=== PATIENT | male | born 1955 | race Caucasian/White ===

== ENCOUNTER → 2016-05-03 | Outpatient (CLI) | payer BC | LOC: MW.CHFP 14:16 | PROVIDERS: ATTEND Nurse Practitioner Family | DX: Z00.00 Encounter for general adult medical examination without abnormal findings (principal); R53.83 Other fatigue; I10 Essential (primary) hypertension; L82.1 Other seborrheic keratosis | CPT/HCPCS: 36415; 80053; 84443; 85027; G0103 ==

== ENCOUNTER → 2016-05-13 | Outpatient (CLI) | payer BC ==
--- NOTE | 2016-05-15 10:45 | ECHO ---
The echocardiogram report can be seen in this patient's EMR in the Reports section. CALE
== END | disposition home or self-care (01) ==
LOC: MW.US 12:40
PROVIDERS: ATTEND Nurse Practitioner Family
DX: I10 Essential (primary) hypertension (principal); R53.83 Other fatigue
CPT/HCPCS: 93306

== ENCOUNTER → 2016-05-20 | Outpatient (CLI) | payer BC | END | disposition home or self-care (01) | LOC: MW.CHIM 13:22 | PROVIDERS: ATTEND Internal Medicine | DX: I10 Essential (primary) hypertension (principal); R07.89 Other chest pain | CPT/HCPCS: 93005 ==

== ENCOUNTER → 2016-05-30 | Outpatient (CLI) | payer BC ==
--- NOTE | 2016-05-30 08:37 | PCM.PRNOTE ---
- Free Text/Narrative Note: Lexiscan Indication cardiomyopathy Patient was supervised today during infusion portion of the stress test. The patient received Regadenoson 0.4 mg IV and nuclear agent using standard protocol. Sestamibi Tm99 25 Mci was gievn afterwards Baseline blood pressure is98/68 with a heart rate 85 EKG atrial fibrillation without ST abnormalities Vital signs at injection: Peak blood pressure 99/63 with a heart rate of 81 Vital signs at 4 minutes post injection: Peak blood pressure 97/65with a heart rate of 77 EKG atrial fibrillation without further ST changes Patient complains of fluttering spontaneously resolved Adverse effects from Hue scan none Test done due to end of protocol Impression 1. electrocardiographically nondiagnostic for ischemia due to chemical protocol 2. nuclear imaging pending
--- NOTE | 2016-05-30 14:58 | NM ---
EXAMINATION: Nuclear medicine myocardial perfusion study HISTORY: Hypertension. PROCEDURE: Following intravenous administration of 0.4 mg of Lexiscan and 26.8 mCi of technetium 99m sestamib i, stress SPECT images including gating imaging was performed. FINDINGS: Stress myocardial SPECT images demonstrates mildly heterogeneous uptake within the left ventricular myocardium. There is a small area of mildly decreased perfusion along the anterior wall. This is mos t likely breast attenuation artifact. Review of gated images demonstrates normal wall motion, contractility and wall thickening. The left ventricular ejection fraction is 62 %. The left ventricular chamber size is normal. IMPRESSION: 1. No definite evidence of myocardial ischemia with probable small area of breast attenuation artifa ct anteriorly. 2. Normal ventricular chamber size and function with ejection fraction of 62 %.
== END | disposition home or self-care (01) ==
LOC: MW.NM 08:22
PROVIDERS: ATTEND Internal Medicine
DX: I10 Essential (primary) hypertension (principal)
CPT/HCPCS: 93017; J2785; 78451; 78451-26; A9500

== ENCOUNTER → 2016-06-07 | Outpatient (CLI) | payer BC ==
--- NOTE | 2016-06-11 15:29 | NM ---
EXAM DATE: 06/07/16 PATIENT'S AGE: 61 ADDENDUM: Additional gated images were obtained at rest following the administration of 25.4 mCi of technetium 99m labeled sestamibi. FINDINGS/IMPRESSION: The myocardial uptake at rest is similar to the stress study, without evidence of myocardial ischemia. The wall motion and ejection fraction is also similar at 67%. The TID is 1.2. EXAMINATION: Nuclear medicine myocardial perfusion study HISTORY: Hypertension. PROCEDURE: Following intravenous administration of 0.4 mg of Lexiscan and 26.8 mCi of technetium 99m sestamibi, stress SPECT images including gating imaging was performed. FINDINGS: Stress myocardial SPECT images demonstrates mildly heterogeneous uptake within the left ventricular myocardium. There is a small area of mildly decreased perfusion along the anterior wall. This is most likely breast attenuation artifact. Review of gated images demonstrates normal wall motion, contractility and wall thickening. The left ventricular ejection fraction is 62 %. The left ventricular chamber size is normal. IMPRESSION: 1. No definite evidence of myocardial ischemia with probable small area of breast attenuation artifact anteriorly. 2. Normal ventricular chamber size and function with ejection fraction of 62 %. MTDD
== END ==
LOC: MW.NM 07:22
PROVIDERS: ATTEND Internal Medicine
DX: I10 Essential (primary) hypertension (principal)
CPT/HCPCS: 78451; 78451-26; A9500

== ENCOUNTER → 2016-07-09 | Outpatient (CLI) | payer BC ==
--- NOTE | 2016-07-09 15:38 | CT ---
CT of the abdomen and pelvis without contrast. HISTORY: Pain TECHNIQUE: Axial CT images were obtained of the abdomen and pelvis without contrast. Coronal and sag ittal reconstructions obtained. FINDINGS: The lung bases are clear, no pleural effusion. The liver appears mildly heterogeneous and hypoechoic. Spleen, adrenal glands, and pancreas appear u nremarkable for noncontrast examination. The gallbladder appears normal. There is no bulky retroper itoneal lymphadenopathy. No abdominal ascites. There is a prominent heterogeneous 8.5 cm right renal mass noted. There is a prominent lump along th e midportion of the left kidney which could represent a benign dromedary hump, however a mass is not excluded. Nonobstructing left renal stones are noted. No evidence of obstructive uropathy. The large and small bowel are normal in caliber without evidence of obstruction. The appendix appear s normal. There is no bulky pelvic lymphadenopathy. No free fluid. No free air. The urinary bladder appears normal. The prostate is moderately prominent. The visualized osseous structures appear normal. IMPRESSION: 1. Large suspicious 8.5 cm right renal mass likely renal cell carcinoma. 2. Rounded masslike area along the mid point of the left kidney, possibly a dromedary hump. A neopla stic processes not excluded. 3. Nonobstructing left nephrolithiasis. 4. Heterogeneous fatty infiltration of the liver.
== END ==
LOC: MW.CHFP 10:41
PROVIDERS: ATTEND Nurse Practitioner Family
DX: R10.9 Unspecified abdominal pain (principal); N20.0 Calculus of kidney; K76.0 Fatty (change of) liver, not elsewhere classified
CPT/HCPCS: 74176; 74176-26; 81001

== ENCOUNTER → 2016-07-12 | Outpatient (CLI) | payer BC ==
[~2016-07-12] MED LIST: Iopamidol 755 MG/ML 50 ML Bottle IV ONE
--- NOTE | 2016-07-16 10:02 | CT ---
EXAM DATE: 07/12/16 PATIENT'S AGE: 61 Patient: AKBAR MORALES Facility: [place], [place] Site Site : [id number] Study: CT Abdomen Angio [id number]/26/2017 4:05:37 PM Ordering Physician: ANNALEE MANDUJANO MD Final Report: Indication: Further assess renal mass. Comparison: [address] without contrast. Technique: 50 mL Isovue-370 IV contrast administered late arterial common equilibrium and delayed imaging of the abdomen centered on the kidneys. Findings: Heterogeneous solid mass lesion right kidney has enhancement patterns of irregular cortical medullary renal parenchyma. Somewhat lobular nodular margins. Mild surrounding perinephric stranding. Greatest axial diameter of the mass is 6.6 x 7.9 cm (image 216 series 401). The greatest cranial caudal extent is approximately 6.3 cm (image 67 series 502). Small benign 11 mm cyst medial upper pole right kidney. No other solid mass. No renal vein invasion or thrombus. Roughly 19 mm round solid mass lateral midpole left kidney (image 70 series 501). Mild perinephric stranding. Two adjacent nonobstructing calculi mid to lower pole unchanged from comparison common each measuring about 4 mm diameter. No left renal vein thrombus or tumor invasion. No retroperitoneal adenopathy. No mesenteric adenopathy. No liver mass. Diffuse low attenuation of steatosis. Gallbladder and biliary ducts are normal. Visualized large and small bowel are normal. Abdominal wall is intact. No evident bone lesion or fracture. 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 No evident metastatic disease. Please note that all CT scans at this facility use dose modulation, iterative reconstruction, and/or weight-based dosing when appropriate to reduce radiation dose to as low as reasonably achievable. Dictated by Brandon Weems MD @ Jul 12 2016 4:38PM (Electronic Signature) Report Signed by Proxy. [facility]ICH[facility] HOSPITALSanjuanita
== END ==
LOC: MW.DI 14:25
PROVIDERS: ATTEND Urology
DX: R10.9 Unspecified abdominal pain (principal); N28.89 Other specified disorders of kidney and ureter; R93.422 Abnormal radiologic findings on diagnostic imaging of left kidney; C64.1 Malignant neoplasm of right kidney, except renal pelvis
CPT/HCPCS: 74175; Q9967

== ENCOUNTER 2017-03-20 12:18 | Emergency (ER) | payer BC ==
[2017-03-20] MEDS ORDERED: Sodium Chloride 0.9% 2.5 ML Syringe FLUSH PRN (12:30)
[2017-03-20] MEDS ORDERED: Sodium Chloride 0.9% 10 ML Syringe FLUSH PRN (12:30)
[2017-03-20] MEDS ORDERED: Aspirin 81 MG Tab.Chew PO ONE (12:30)
[2017-03-20] MEDS ORDERED: Nitroglycerin 0.4 MG Tab.SL SL ONE (12:30)
[2017-03-20] MEDS ORDERED: Famotidine 20 MG/2 ML SDV IVPUSH ONE (12:30)
--- NOTE | 2017-03-20 12:32 | EDM.PDOC ---
ED HPI GENERAL MEDICAL PROBLEM - General Stated Complaint: CHEST PAIN Time Seen by Provider: 03/20/17 12:28 Source of Information: Reports: Patient, Old Records History Limitations: Reports: No Limitations - History of Present Illness INITIAL COMMENTS - FREE TEXT/NARRATIVE: HISTORY AND PHYSICAL: []Pleasant 61-year-old gentleman speaking quietly experiencing chest heaviness across the mid anterior chest but 10 minutes prior to presenting to the emergency department History of Present Illness: []Patient had a irregular heart rate in the past in July 2016 underwent kidney removal Patient has recently been diagnosed with bilateral lung cancer has not started treatment yet Primary care provider is Rocío Ibarra NP at the [facility] Review of Systems: As per history of present illness and below otherwise all systems reviewed and negative. Past medical history: As per history of present illness and as reviewed below otherwise noncontributory. Surgical history: As per history of present illness and as reviewed below otherwise noncontributory. Social history: No reported history of drug or alcohol abuse. Family history: As per history of present illness and as reviewed below otherwise noncontributory. Physical exam: Alert and oriented male speaking in full sentences softly quietly. Shortness breath noted rating his pain as 5/10 HEENT: Atraumatic, normocehpalic, pupils reactive, negative for conjunctival pallor or scleral icterus, mucous membranes moist, throat clear, neck supple, nontender, trachea midline. Lungs: Clear to auscultation, breath sounds equal bilaterally, chest non tender. Heart: S1S2, regular, negative for clicks, rubs, or JVD. Abdomen: Soft, nondistended, nontender. Negative for masses or hepatossplenmegaly. Negative for costovertebral tenderness. Pelvis: Stable nontender. Genitourinary: Deferred. Rectal: Deferred Extremities: Atraumatic, negative for cords or calf pain. Neurovascular unremarkable. Neuro: Awake, alert, oriented. Cranial nerves II through XII unremarkable. Cerebellum unremarkable. Motor and sensory unremarkable throughout. Exam nonfocal. Discussed with the patient and his that the pontine level is negative EKG normal sinus rhythm Discussed with patient status and he will accept patient as observation on telemetry. Diagnostics: []CBC CMP amylase lipase troponin EKG Therapeutics: [Aspirin Nitrostat] Impression: [#1 chest pain] Plan: [Refer for observation on telemetry ] Definitive disposition and diagnosis as appropriate pending reevaluation and review of above. Onset: Today, Sudden Duration: Minutes:, Heavy Location: Reports: Chest chest Pain Score (Numeric/FACES): 7 - Related Data Allergies Allergy/AdvReac Type Severity Reaction Status Date / Time No Known Allergies Allergy Verified 03/20/17 12:33 Home Meds: Home Meds Olmesartan [Benicar] 0.5 tab PO DAILY 12/26/15 [History] Triamcinolone Acetonide [IJP: Triamcinolone Acetonide 0.1% Crm] 1 applic TOP ASDIRECTED PRN 12/26/15 [History] Triamterene/Hydrochlorothiazid [Triamterene-HCTZ 75-50 MG] 1 tab PO DAILY [History] Past Medical History HEENT History: Reports: None Cardiovascular History: Reports: Hypertension Respiratory History: Reports: None Gastrointestinal History: Reports: None Genitourinary History: Reports: None Musculoskeletal History: Reports: None Neurological History: Reports: None Psychiatric History: Reports: None Endocrine/Metabolic History: Reports: Obesity/BMI 30+ Hematologic History: Reports: None Immunologic History: Reports: None Oncologic (Cancer) History: Reports: None - Past Surgical History Dermatological Surgical History: Reports: Skin Graft Social & Family History - Tobacco Use Smoking Status *Q: Former Smoker - Recreational Drug Use Recreational Drug Use: No Drug Use in Last 12 Months: No ED ROS GENERAL - Review of Systems Review Of Systems: ROS reveals no pertinent complaints other than HPI. ED EXAM, GENERAL - Physical Exam Exam: See Below (see dictation) EKG INTERPRETATION Rhythm: NSR Course - Vital Signs Last Recorded V/S: Last Vital Signs Temp 36.6 C 03/20/17 12:31 Pulse 92 03/20/17 12:31 Resp 18 03/20/17 12:31 BP 129/83 03/20/17 12:43 Pulse Ox 98 03/20/17 12:31 - Orders/Labs/Meds Orders: Active Orders 24 hr Category Date Time Status Patient Status [ADT] Stat ADT 03/20/17 13:49 Ordered Cardiac Monitoring [RC] . DIRECTED Care 03/20/17 12:30 Active EKG Documentation Completion [RC] STAT Care 03/20/17 12:30 Active Pulse Oximetry [RC] ASDIRECTED Care 03/20/17 12:30 Active UA W/MICROSCOPIC [URIN] Stat Lab 03/20/17 12:30 Uncollected Sodium Chloride 0.9% [Saline Flush] Med 03/20/17 12:30 Active 10 ml FLUSH ASDIRECTED PRN Sodium Chloride 0.9% [Saline Flush] Med 03/20/17 12:30 Active 2.5 ml FLUSH ASDIRECTED PRN Saline Lock Insert [OM.PC] Stat Oth 03/20/17 12:30 Ordered Medication Orders Sodium Chloride (Saline Flush) 10 ml FLUSH ASDIRECTED PRN PRN Reason: Keep Vein Open Sodium Chloride (Saline Flush) 2.5 ml FLUSH ASDIRECTED PRN PRN Reason: Keep Vein Open Labs: Laboratory Tests 03/20/17 03/20/17 03/20/17 Range/Units 12:24 12:24 12:24 WBC 8.42 (4.0-11.0) K/uL RBC 5.18 (4.50-5.90) M/uL Hgb 16.3 (13.0-17.0) g/dL Hct 46.9 (38.0-50.0) % MCV 90.5 (80.0-98.0) fL MCH 31.5 (27.0-32.0) pg MCHC 34.8 (31.0-37.0) g/dL RDW Std Deviation 43.3 (28.0-62.0) fl RDW Coeff of Neelam 13 (11.0-15.0) % Plt Count 215 (150-400) K/uL MPV 12.00 (7.40-12.00) fL Neut % (Auto) 72.4 (48.0-80.0) % Lymph % (Auto) 19.4 (16.0-40.0) % Hemphill % (Auto) 7.1 (0.0-15.0) % Eos % (Auto) 1.0 (0.0-7.0) % Baso % (Auto) 0.1 (0.0-1.5) % Neut # (Auto) 6.1 H (1.4-5.7) K/uL Lymph # (Auto) 1.6 (0.6-2.4) K/uL Hemphill # (Auto) 0.6 (0.0-0.8) K/uL Eos # (Auto) 0.1 (0.0-0.7) K/uL Baso # (Auto) 0.0 (0.0-0.1) K/uL Nucleated RBC % 0.0 /100WBC Nucleated RBCs # 0 K/uL INR 1.03 Sodium 137 (136-146) mmol/L Potassium 3.7 (3.5-5.1) mmol/L Chloride 100 (98-110) mmol/L Carbon Dioxide 23 (21-31) mmol/L BUN 30 H (6.0-23.0) mg/dL Creatinine 2.0 H (0.6-1.5) mg/dL Est Cr Clr Drug Dosing 45.18 mL/min Estimated GFR (MDRD) 33.9 ml/min Glucose 139 H (60-110) mg/dL Calcium 9.3 (8.8-10.8) mg/dL Total Bilirubin 0.7 (0.1-1.5) mg/dL AST 31 (5-40) IU/L ALT 54 (8-54) IU/L Alkaline Phosphatase 82 (40-150) Troponin I < 0.10 (0.0-0.29) NG/ML Total Protein 8.4 H (6.0-8.0) g/dL Albumin 4.4 (3.4-4.8) g/dL Globulin 4.0 H (2.0-3.5) g/dL Albumin/Globulin Ratio 1.1 L (1.3-2.8) Amylase 60 (10-90) U/L Lipase 23 (7-80) U/L Meds: Medications Generic Name Dose Route Start Last Admin Trade Name Freq PRN Reason Stop Dose Admin Sodium Chloride 10 ml 03/20/17 12:30 Saline Flush FLUSH ASDIRECTED PRN Keep Vein Open Sodium Chloride 2.5 ml 03/20/17 12:30 Saline Flush FLUSH ASDIRECTED PRN Keep Vein Open Discontinued Medications Generic Name Dose Route Start Last Admin Trade Name Freq PRN Reason Stop Dose Admin Aspirin 324 mg 03/20/17 12:30 03/20/17 12:43 Aspirin PO 03/20/17 12:31 324 mg ONETIME ONE Administration Famotidine 20 mg 03/20/17 12:30 03/20/17 12:45 Pepcid IVPUSH 03/20/17 12:31 20 mg ONETIME ONE Administration Nitroglycerin 0.4 mg 03/20/17 12:30 03/20/17 12:43 Nitrostat SL 03/20/17 12:31 0.4 mg ONETIME ONE Administration Departure - Departure Time of Disposition: 13:52 Disposition: Refer to Observation Condition: Good Clinical Impression: Chest pain Qualifiers: Chest pain type: unspecified Qualified Code(s): R07.9 - Chest pain, unspecified - My Orders Last 24 Hours: My Active Orders 03/20/17 12:30 Cardiac Monitoring [RC] . DIRECTED EKG Documentation Completion [RC] STAT Pulse Oximetry [RC] ASDIRECTED UA W/MICROSCOPIC [URIN] Stat Sodium Chloride 0.9% [Saline Flush] 10 ml FLUSH ASDIRECTED PRN Sodium Chloride 0.9% [Saline Flush] 2.5 ml FLUSH ASDIRECTED PRN Saline Lock Insert [OM.PC] Stat 03/20/17 13:49 Patient Status [ADT] Stat - Assessment/Plan Last 24 Hours: My Active Orders 03/20/17 12:30 Cardiac Monitoring [RC] . DIRECTED EKG Documentation Completion [RC] STAT Pulse Oximetry [RC] ASDIRECTED UA W/MICROSCOPIC [URIN] Stat Sodium Chloride 0.9% [Saline Flush] 10 ml FLUSH ASDIRECTED PRN Sodium Chloride 0.9% [Saline Flush] 2.5 ml FLUSH ASDIRECTED PRN Saline Lock Insert [OM.PC] Stat 03/20/17 13:49 Patient Status [ADT] Stat
[2017-03-20] MEDS ORDERED: Sodium Chloride 0.9% 1,000 ML IV ONE (12:50)
[2017-03-20 12:54] LABS: CHLORIDE,CL 100 mmol/L (98-110); SODIUM,NA 137 mmol/L (136-146)
--- NOTE | 2017-03-20 13:07 | CR ---
Portable chest Clinical history: Chest pain Comparison: No recent Findings: Examination is exposed in a slight lordosis allowing for which there is no infiltrate failu re or volume loss. Impression: No acute cardiac pulmonary disease
[2017-03-20 14:18] VITALS: BP 131/70
== END 2017-03-20 14:16 | disposition home or self-care (01) ==
LOC: MW.ED 12:18
DX: R07.89 Other chest pain (principal); I10 Essential (primary) hypertension; Z87.891 Personal history of nicotine dependence; Z79.899 Other long term (current) drug therapy
CPT/HCPCS: 71045; 80053; 82150; 83690; 84484; 85025; 85610; 93005; 96361; 96374; 99285; A9270; J7040; 99284